=== PATIENT | female | born 1970 | race African-American/Black ===

== ENCOUNTER 2021-10-19 22:34 | Emergency (ER) | payer SELFPAY ==
[2021-10-19] MEDS ORDERED: Ketorolac Tromethamine 30 MG/ML VIAL ONE (23:16)
== END 2021-10-20 00:32 | disposition home or self-care (01) ==
LOC: CSHERS 22:34
DX: M17.11 Unilateral primary osteoarthritis, right knee (principal); M70.51 Other bursitis of knee, right knee
CPT/HCPCS: 96372; J1885

== ENCOUNTER 2021-12-05 00:08 | Emergency (ER) | payer BC, SELFPAY ==
[2021-12-05] MEDS ORDERED: Ketorolac Tromethamine 30 MG/ML VIAL ONE (00:35)
[2021-12-05] MEDS ORDERED: Ondansetron PF 4 MG/2 ML Vial ONE (00:35)
[2021-12-05] MEDS ORDERED: Morphine 4 MG/ML VIAL ONE (00:35)
[2021-12-05 00:44] LABS: #Eosinphils 0.1 10x3/uL (0.0-0.5); #Monocytes 0.8 10x3/uL (0.0-1.1); #Neutrophils 10.1 10x3/uL (1.5-8.4); %Basophils 0.3 % (0.0-2.0); %Eosinophils 0.7 % (0.0-6.0); %Lymphocytes 21.8 % (18.0-47.0); %Monocytes 5.7 % (0.0-10.0); %Neutrophils 71.1 % (40.0-75.0); Hemoglobin 10.6 g/dL (12.0-15.5); Mean Corpuscular HGB CONC 31.8 g/dL (32.0-36.0); Mean Corpuscular Hemoglobin 24.8 pg (27.0-33.0); Mean Corpuscular Volume 77.8 fl (81.6-98.3); Mean Platelet Volume 10.3 fl (7.4-10.4); Platelet Count 386 10x3/uL (150-450); RBC Distribution Width 15.9 % (11.5-14.5); Red Blood Cell (RBC) Count 4.28 10x6/uL (3.90-5.03); White Blood Cell (WBC) Count 14.2 10x3/uL (3.5-10.5)
[2021-12-05 00:55] LABS: ALT (SGPT) 8 U/L (8-55); AST (SGOT) 15 U/L (5-34); Alkaline Phosphatase 63 U/L (40-110); Anion Gap 15 mmol/L (10-20); BUN (Urea Nitrogen) 11 mg/dL (7.0-18.7); Bilirubin, Total 0.2 mg/dL (0.2-1.2); Calc. Creatinine Clearance 0 mL/min (70-130); Calcium 9.1 mg/dL (7.8-10.44); Carbon Dioxide 21 mmol/L (22-29); Chloride 109 mmol/L (98-107); Estimated GFR 62; Globulin 3.7 g/dL (2.4-3.5); Glucose 127 mg/dL (70-105); Potassium 3.6 mmol/L (3.5-5.1); Protein, Total 7.7 g/dL (6.0-8.3); Sodium 141 mmol/L (136-145)
== END 2021-12-05 01:45 | disposition home or self-care (01) ==
LOC: CSHERS 00:08
DX: S09.90XA Unspecified injury of head, initial encounter (principal); S20.211A Contusion of right front wall of thorax, initial encounter; S30.1XXA Contusion of abdominal wall, initial encounter; H11.32 Conjunctival hemorrhage, left eye; Y04.8XXA Assault by other bodily force, initial encounter
CPT/HCPCS: 70450; 71250; 74177; 80053; 85025; 96374; 96375; J1885; J2270; J2405

== ENCOUNTER 2021-12-18 16:26 | Emergency (ER) | payer BC | END 2021-12-18 17:32 | disposition home or self-care (01) | LOC: CSHERS 16:26 | DX: S40.011A Contusion of right shoulder, initial encounter (principal); S80.11XA Contusion of right lower leg, initial encounter; Y04.8XXA Assault by other bodily force, initial encounter | CPT/HCPCS: 99283 ==

== ENCOUNTER 2024-06-18 09:13 | Outpatient (CLI) | payer OTHER | END 2024-06-18 09:14 | disposition home or self-care (01) | LOC: CSHMAMMO 09:13 | PROVIDERS: ATTEND Nurse Practitioner Women's Health | DX: Z12.31 Encounter for screening mammogram for malignant neoplasm of breast (principal) | CPT/HCPCS: 77063; 77067 ==